=== PATIENT | female | born 1990 | race Two or more races ===

== ENCOUNTER 2018-05-28 19:28 | Emergency (ER) | payer OTHER ==
[~2018-05-28] VITALS: Ht 160 cm; Wt 63.5 kg
[2018-05-28] MEDS ORDERED: GEODON20 MG (20:01)
[2018-05-28] MEDS ORDERED: [UNRECOGNIZED DRUG - CODE] (20:01)
[2018-05-29] MEDS ORDERED: LEVSIN/SL0.125 MG SL (06:29)
[2018-05-29] MEDS ORDERED: INTESTINEX680 M1 PO (06:29)
[2018-05-29] MEDS ORDERED: CIPRO500 MG PO (06:29)
== END 2018-05-29 07:04 ==
LOC: ER 19:28
DX: K52.89 Other specified noninfective gastroenteritis and colitis (principal)